=== PATIENT | male | born 1950 | race Caucasian/White ===

== ENCOUNTER → 2021-07-24 15:11 | Outpatient (CLI) | payer OTHER, SELFPAY ==
--- NOTE | ~2021-07-24 | MR_ITS ---
EXAMINATION: MR brain/brain stem wo con EXAM DATE: 07/24/2021 16:07 INDICATION: Transient cerebral ischemic attack, visual disturbance in half of left eye, 2 temporary e pisodes. TECHNIQUE: Magnetic resonance imaging (MRI) of the brain/brain stem obtained without contrast. Chely al T1, axial diffusion, gradient echo (T2*), T1, T2, FLAIR sequences obtained. There is no prior st udy for comparison. FINDINGS: There are no areas of restricted diffusion to suggest acute infarction. There is no acute hemorrhage seen on the T2*, a hemosiderin sensitive sequence. No intraparenchymal brain mass lesion. There is mild periventricular and subcortical T2/FLAIR signal hyperintensity, nonspecific but probab ly related to small vessel ischemic disease (microangiopathy). There is mild prominence of the sulc i and ventricles related to cerebral atrophy. There are no extra-axial collections. Flow voids are seen in the cerebral arteries on the T2-weighted sequences consistent with their expected patency. The orbits are unremarkable. Soft tissue is unremarkable. IMPRESSION: 1. No acute intracranial findings. 2. Mild age related findings. Reviewed, dictated and finalized at location A.
== END ==
PROVIDERS: PCP Internal Medicine; Visit Provider Internal Medicine
DX: G45.9 Transient cerebral ischemic attack, unspecified (principal)
CPT/HCPCS: 70551

== ENCOUNTER 2022-01-08 07:40 | Outpatient (CLI) | payer MEDICARE, SELFPAY ==
--- NOTE | ~2022-01-08 | CT_ITS ---
EXAMINATION: CT abdomen pelvis w con DATE: 01/08/2022 08:14 INDICATION: Acute prostatitis TECHNIQUE: Computed tomography (CT) of the abdomen and pelvis was performed with 100 mL Omnipaque-350 intravenous contrast. Automated exposure control and iterative reconstruction technique were employe d. The dose-length product was 439.17 mGy-cm. COMPARISON: None FINDINGS: Calcified nodule at the right lung base consistent with old granulomatous disease. Heart size is norm al. Atherosclerotic coronary artery calcification. Aortic valve calcific lesion. No pericardial effus ion. Focal hepatic steatosis at the ligamentum teres. Gallbladder, pancreas and bilateral adrenal gla nds are normal. Multiple splenic calcific lesions consistent with old granulomatous disease. Bilatera l low-attenuation renal cysts the largest measuring 2.2 cm the upper pole of the left kidney. There a re are couple 2 cm along linear metallic foreign bodies within the lumen of the ascending colon. Ther e is moderate colonic diverticulosis with a sigmoid predominance. There is no adjacent inflammatory c hange to suggest diverticulitis. Small bowel and appendix are normal. Bladder is normal. Prostatomega ly measuring 4.7 x 3.6 cm. Small bilateral fat-containing inguinal hernias. Numerous likely reactive retroperitoneal lymph nodes along the infrarenal abdominal aorta and bilateral iliac chains more nota ble for number than size, the largest measuring up to 1 cm in maximal diameter which remains within n ormal limits. Moderate thoracolumbar spondylosis. IMPRESSION: 1. Mild prostatomegaly and mild likely reactive retroperitoneal lymphadenopathy in the lower abdomen and pelvis which could be related to reported history of acute prostatitis. 2. A couple likely ingested 2 cm linear metallic foreign bodies within the descending colon. 3. Diverticulosis. 4. Small bilateral fat-containing inguinal hernias. Reviewed, dictated and finalized at location A. [employer] IMPRESSION: 1. Mild prostatomegaly and mild likely reactive retroperitoneal lymphadenopathy in the lower abdomen and pelvis which could be related to reported history of acute prostatitis. 2. A couple likely ingested 2 cm linear metallic foreign bodies within the desc ending colon. 3. Diverticulosis. 4. Small bilateral fat-containing inguinal hernias.
[2022-01-08 08:09] LABS: Estimated Glomerular Filt Rate > 60
== END 2022-01-08 07:41 | disposition home or self-care (01) ==
LOC: ANHIMG 07:44
PROVIDERS: PCP Internal Medicine; Visit Provider Urology
DX: N41.0 Acute prostatitis (principal); K57.30 Diverticulosis of large intestine without perforation or abscess without bleeding; K40.90 Unilateral inguinal hernia, without obstruction or gangrene, not specified as recurrent
CPT/HCPCS: 74177; Q9967

== ENCOUNTER 2022-03-04 07:11 | Outpatient (CLI) | payer MEDICARE, SELFPAY ==
--- NOTE | ~2022-03-04 | XR_ITS ---
EXAMINATION: XR chest 2V DATE: 03/04/2022 07:46 INDICATION: Prostate cancer. TECHNIQUE: Frontal and lateral views of the chest were obtained. COMPARISON: CT abdomen and pelvis 03/04/2022 FINDINGS: There is no pneumonia, pleural effusion, or pneumothorax. Calcified right hilar lymph nodes are consistent with old granulomatous disease. Faintly visualized are sclerotic lesions of bone. IMPRESSION: 1. Faintly visualized sclerotic lesions of bone, consistent with metastatic disease. Reviewed, dictated and finalized at location B. IMPRESSION: 1. Faintly visualized sclerotic lesions of bone, consistent with metastatic dis ease.
--- NOTE | ~2022-03-04 | CT_ITS ---
EXAMINATION: CT abdomen pelvis w con DATE: 03/04/2022 08:06 INDICATION: Prostate cancer. TECHNIQUE: Computed tomography (CT) of the abdomen and pelvis was performed with 100 mL Omnipaque 350 intravenous contrast. Automated exposure control and iterative reconstruction technique were employe d. The dose-length product was 346.80 mGy-cm. COMPARISON: CT abdomen and pelvis 01/08/2022 FINDINGS: The visualized portions of the lung bases demonstrate mild atelectasis. A calcified right l sonia nodule and calcified right hilar lymph nodes are consistent with old adenomatous disease. No pleu ral effusion. The heart size is normal. There are coronary artery calcifications. There are calcifica tions of the coronary arteries. No pericardial effusion. The liver, gallbladder, pancreas, and adrena l glands are normal. Calcifications in the spleen are consistent with old granulomatous disease. Ther e are cysts in the kidneys measuring up to 2.4 cm on the left. The prostate is mildly enlarged. There may be changes of inguinal hernia repairs. There is diverticulosis of the colon without evidence of diverticulitis. There are endoscopy clips in the ascending colon. The appendix is normal. There are n o pathologically enlarged lymph nodes. There is no free intraperitoneal fluid. There are widespread s clerotic lesions involving almost all bones. There is a mixed lytic and sclerotic pattern in left arnel um. IMPRESSION: 1. Worsened widespread osseous metastatic disease. Reviewed, dictated and finalized at location B.
--- NOTE | ~2022-03-04 | NM_ITS ---
EXAMINATION: NM bone scan whole body DATE: 03/04/2022 11:56 INDICATION: Prostate cancer TECHNIQUE: 5.2 mCi Tc-99m HDP was administered intravenously. Delayed whole-body scintigrams were ob tained. COMPARISON: CT abdomen pelvis dated 03/04/2022 FINDINGS/IMPRESSION: Multiple regions of intense increased FDG uptake scattered throughout the axial and appendicular skel eton with associated sclerotic lesions on CT consistent with metastatic prostate cancer. The largest involving the left iliac wing demonstrates associated osteolysis and sclerosis. IMPRESSION: 1. Increased uptake associated with multiple sclerotic bone lesions scattered throughout the axial an d appendicular skeleton consistent with metastatic prostate cancer. Reviewed, dictated and finalized at location A. IMPRESSION: 1. Increased uptake associated with multiple sclerotic bone lesions scattered t hroughout the axial and appendicular skeleton consistent with metastatic prosta te cancer.
[2022-03-04 07:56] LABS: Estimated Glomerular Filt Rate > 60
== END 2022-03-04 07:12 | disposition home or self-care (01) ==
PROVIDERS: PCP Internal Medicine; Visit Provider Urology
DX: C61 Malignant neoplasm of prostate (principal); C79.51 Secondary malignant neoplasm of bone
CPT/HCPCS: 71046; 74177; 78306; A9561; Q9967